=== PATIENT | female | born 1985 | race Caucasian/White ===

== ENCOUNTER 2017-06-02 17:37 | Emergency (ER) | payer OTHER ==
[2017-06-02 18:48] VITALS: BP 154/98; PULSE 90; RESP 16; TEMP 98; O2SAT 98
--- NOTE | 2017-06-02 19:16 | ED PDOC ---
HPI: General Adult Time Seen by Provider: 06/02/17 18:57 Chief Complaint (Nursing): Flu-like Symptoms Chief Complaint (Provider): Cough, sore throat History Per: Patient History/Exam Limitations: no limitations Onset/Duration Of Symptoms: Days Have you had recent travel within the past 21 days to any of the following countries: [place], [place], [place] or [place]?: No Current Symptoms Are (Timing): Still Present Additional Complaint(s): Pt reports cough, sore throat and hoarse voice x 5 days. PT was seen by PMD and prescribed z-pack and tamiflu 2 days ago. Pt states she still does not feel better. Pt reports fever yesterday 102.0 but did not take temperature today. PT took motrin for bodyaches 3 pm today. No phlegm. Past Medical History Reviewed: Historical Data, Nursing Documentation, Vital Signs Vital Signs: Last Vital Signs Temp 98.0 F 06/02/17 18:44 Pulse 90 06/02/17 18:44 Resp 16 06/02/17 18:44 BP 154/98 H 06/02/17 18:44 Pulse Ox 98 06/02/17 18:44 - Medical History PMH: Kidney Stones, Pneumonia, Chronic Kidney Disease - Surgical History Surgical History: Appendectomy, ( x 1) - Family History Family History: States: No Known Family Hx - Immunization History Hx Tetanus Toxoid Vaccination: No Hx Influenza Vaccination: No Hx Pneumococcal Vaccination: No - Home Medications Home Medications: Ambulatory Orders Medication Instructions Recorded Docusate Sodium [Colace] 100 mg PO DAILY PRN #5 sgl 02/27/14 Albuterol HFA [Ventolin HFA 90 1 puff IH Q4 PRN #1 unit 08/01/14 mcg/actuation (8 g)] Levofloxacin [Levaquin] 500 mg PO DAILY #10 tab 08/01/14 Prednisone 20 mg PO BID #10 tab 08/01/14 guaiFENesin/Codeine [Robitussin 5 ml PO Q4H PRN #240 ml 08/01/14 w/Codeine] traMADol [Ultram] 50 mg PO Q6H PRN #15 tab 09/03/14 predniSONE [predniSONE Tab] 20 mg PO DAILY #12 tab 06/02/17 - Allergies Allergies/Adverse Reactions: Allergies Allergy/AdvReac Type Severity Reaction Status Date / Time [place] Allergy RASH Verified 06/02/17 18:44 Review of Systems ROS Statement: Except As Marked, All Systems Reviewed And Found Negative Constitutional: Positive for: Fever, Chills, Malaise ENT: Positive for: Throat Pain Respiratory: Positive for: Cough. Negative for: Shortness of Breath Gastrointestinal: Negative for: Abdominal Pain Physical Exam - Reviewed Nursing Documentation Reviewed: Yes Vital Signs Reviewed: Yes - Physical Exam Appears: Positive for: Well, Non-toxic, No Acute Distress Head Exam: Positive for: ATRAUMATIC, NORMAL INSPECTION, NORMOCEPHALIC Skin: Positive for: Normal Color, Warm, DRY Eye Exam: Positive for: Normal appearance ENT: Positive for: Normal ENT Inspection, Pharynx Is (Mild erythema, equal bilateral, uvula midline) Neck: Positive for: Normal, Painless ROM Cardiovascular/Chest: Positive for: Regular Rate, Rhythm Respiratory: Positive for: Normal Breath Sounds. Negative for: Accessory Muscle Use Back: Positive for: Normal Inspection Extremity: Positive for: Normal ROM Neurologic/Psych: Positive for: Alert, Oriented - ECG O2 Sat by Pulse Oximetry: 98 Pulse Ox Interpretation: Normal Disposition - Clinical Impression Clinical Impression: Influenza-like symptoms - Patient ED Disposition Is Patient to be Admitted: No Counseled Patient/Family Regarding: Diagnosis, Need For Followup, Rx Given - Disposition Disposition: Routine/Home Disposition Time: 19:17 Condition: GOOD Prescriptions: predniSONE [predniSONE Tab] 20 mg PO DAILY #12 tab Instructions: Laryngitis (ED)
== END 2017-06-02 19:41 | disposition home or self-care (01) ==
LOC: H.ER 17:37
DX: J04.0 Acute laryngitis (principal); Z87.442 Personal history of urinary calculi
CPT/HCPCS: 81025; 96372; 99282; J1100

== ENCOUNTER 2018-03-29 13:22 | Emergency (ER) | payer OTHER ==
[2018-03-29] MEDS ORDERED: Sodium Chloride 0.9% 1,000 ML IV ONE (15:00)
[2018-03-29 15:27] LABS: BASO % 0.2 % (0.0-2.0); EOS # 0.1 K/uL (0.0-0.7); EOS % 1.6 % (0.0-4.0); HEMOGLOBIN 13.5 g/dL (12.0-16.0); LYMPH # 1.7 K/uL (1.0-4.3); LYMPH % 18.6 % (20.0-40.0); MEAN CELL VOLUME 79.9 fl (81.0-99.0); MEAN CORPUSCULAR HEMOGLOBIN 27.3 pg (27.0-31.0); MEAN CORPUSCULAR HGB CONC 34.1 g/dL (33.0-37.0); MEAN PLATELET VOLUME 8.4 fl (7.2-11.7); MONO # 0.8 K/uL (0.0-0.8); MONO % 8.2 % (0.0-10.0); NEUT # 6.5 K/uL (1.8-7.0); NEUT % 71.4 % (50.0-75.0); RBC 4.95 Mil/uL (3.80-5.20); WHITE BLOOD COUNT 9.2 K/uL (4.8-10.8)
[2018-03-29 15:42] LABS: ALBUMIN 4.4 g/dL (3.5-5.0); ALT/SGPT 26 U/L (9-52); AST/SGOT 44 U/L (14-36); BLOOD UREA NITROGEN 7 mg/dl (7-17); CALCIUM 9.3 mg/dL (8.4-10.2); GFR NON-AFRICAN AMERICAN > 60; LIPASE 74 U/L (23-300)
--- NOTE | 2018-03-29 16:32 | US ---
Date of service: 03/29/2018 HISTORY: RUQ pain COMPARISON: None. TECHNIQUE: Sonographic evaluation of the right upper quadrant of the abdomen. FINDINGS: LIVER: Measures 15.7 cm in length. Increased echogenicity of the liver parenchyma. No mass. No intrahepatic bile duct dilatation. GALLBLADDER: Unremarkable. No gallstones. COMMON BILE DUCT: Measures 3.4 mm. No stones. No dilatation. PANCREAS: The tail of the pancreas is obscured by overlying bowel gas with remainder unremarkable. RIGHT KIDNEY: Measures 11.2 cm in length. Normal echogenicity. No calculus, mass, or hydronephrosis. AORTA: No aneurysmal dilatation. IVC: Unremarkable. OTHER FINDINGS: None . IMPRESSION: Hepatic steatosis or other infiltrative process seen throughout the liver with remainder of the examination unremarkable.
[2018-03-29 17:54] VITALS: BP 137/93; PULSE 83; RESP 19; TEMP 97.7; O2SAT 100
--- NOTE | 2018-03-29 21:46 | ED PDOC ---
HPI: Abdomen Time Seen by Provider: 03/29/18 14:59 Chief Complaint (Nursing): Abdominal Pain Additional Complaint(s): 32 y/o female with no significant PMH presents to ED c/o nausea and vomiting x 2 days. Pt ate eth[place] food wednesday night and woke up nauseous the next morning. Admits to vomiting approx. 15 times Wednesday and 10 times today. Pt has associated diarrhea 3-5 times daily and generalized cramping belly pain. Denies sick contacts or recent antibiotic use. Denies alcohol use. History of appendectomy as a teenager. LMP 03/18/18. Denies fevers, chills, hematochezia, hematemesis, SOB, cough, chest pain, headache, vision changes, rash. Past Medical History Reviewed: Historical Data, Nursing Documentation, Vital Signs Vital Signs: Last Vital Signs Temp 97.7 F 03/29/18 17:47 Pulse 83 03/29/18 17:47 Resp 19 03/29/18 17:47 BP 137/93 H 03/29/18 17:47 Pulse Ox 100 03/29/18 17:47 - Medical History PMH: Fibromyalgia, Kidney Stones, Migraine, Pneumonia, Chronic Kidney Disease - Surgical History Surgical History: Appendectomy, ( x 1) - Family History Family History: States: No Known Family Hx - Immunization History Hx Tetanus Toxoid Vaccination: No Hx Influenza Vaccination: No Hx Pneumococcal Vaccination: No - Home Medications Home Medications: Ambulatory Orders Medication Instructions Recorded Docusate Sodium [Colace] 100 mg PO DAILY PRN #5 sgl 02/27/14 Albuterol HFA [Ventolin HFA 90 1 puff IH Q4 PRN #1 unit 08/01/14 mcg/actuation (8 g)] Levofloxacin [Levaquin] 500 mg PO DAILY #10 tab 08/01/14 Prednisone 20 mg PO BID #10 tab 08/01/14 guaiFENesin/Codeine [Robitussin 5 ml PO Q4H PRN #240 ml 08/01/14 w/Codeine] traMADol [Ultram] 50 mg PO Q6H PRN #15 tab 09/03/14 predniSONE [predniSONE Tab] 20 mg PO DAILY #12 tab 06/02/17 Ondansetron [Zofran] 8 mg PO Q8H PRN #6 tab 03/29/18 - Allergies Allergies/Adverse Reactions: Allergies Allergy/AdvReac Type Severity Reaction Status Date / Time [place] Allergy RASH Verified 03/29/18 13:50 Review of Systems Constitutional: Negative for: Fever, Chills, Sweats Eyes: Negative for: Pain, Vision Change ENT: Negative for: Ear Pain, Nose Pain, Mouth Pain, Throat Pain, Throat Swelling Cardiovascular: Negative for: Chest Pain, Palpitations Respiratory: Negative for: Cough, Shortness of Breath Gastrointestinal: Positive for: Nausea, Vomiting, Abdominal Pain, Diarrhea. Negative for: Melena, Hematochezia, Hematemesis, Rectal Pain Genitourinary Female: Negative for: Dysuria, Frequency, Incontinence Musculoskeletal: Negative for: Neck Pain, Shoulder Pain, Arm Pain, Back Pain, Hand Pain, Leg Pain, Foot Pain Skin: Negative for: Rash Neurological: Negative for: Weakness, Numbness, Confusion, Altered Mental Status, Dizziness Physical Exam - Reviewed Nursing Documentation Reviewed: Yes Vital Signs Reviewed: Yes - Physical Exam Appears: Positive for: Well, Non-toxic, No Acute Distress Head Exam: Positive for: ATRAUMATIC, NORMAL INSPECTION, NORMOCEPHALIC Skin: Positive for: Normal Color, Warm, DRY Eye Exam: Positive for: EOMI, Normal appearance, PERRL ENT: Positive for: Normal ENT Inspection Neck: Positive for: Normal, Painless ROM Cardiovascular/Chest: Positive for: Regular Rate, Rhythm Respiratory: Positive for: CNT, Normal Breath Sounds Pulses-Radial (L): 2+ Pulses-Radial (R): 2+ Gastrointestinal/Abdominal: Positive for: Bowel Sounds, Soft, Tenderness (RUQ). Negative for: Organomegaly, Mass, Distended, Guarding, Rebound, Hernia, Asicites Back: Positive for: Normal Inspection Extremity: Positive for: Normal ROM Lymphatic: Positive for: Normal Exam Neurologic/Psych: Positive for: Alert, Oriented - Laboratory Results Result Diagrams: 03/29/18 15:24 03/29/18 15:24 - ECG O2 Sat by Pulse Oximetry: 100 Medical Decision Making Medical Decision Makin32 y/o female with no significant PMH presents to ED c/o nausea and vomiting x 2 days. Pt ate eth[place] food wednesday night and woke up nauseous the next morning. Admits to vomiting approx. 15 times Wednesday and 10 times today. Pt has associated diarrhea 3-5 times daily and generalized cramping belly pain. Denies sick contacts or recent antibiotic use. Denies alcohol use. History of appendectomy as a teenager. Denies fevers, chills, hematochezia, hematemesis, SOB, cough, chest pain, headache, vision changes, rash. Exam significant for RUQ tenderness; dry mouth. Otherwise normal cardiac, pulmonary, HEENT, and abdominal exams. Initial plan: --zofran 8mg ODT --IVF --CBC, CMP, lipase --dipstick -POC preg --gall bladder US CBC:wnl CMP: wnl Dipstick: unremarkable US: FINDINGS: LIVER: Measures 15.7 cm in length. Increased echogenicity of the liver parenchyma. No mass. No intrahepatic bile duct dilatation. GALLBLADDER: Unremarkable. No gallstones. COMMON BILE DUCT: Measures 3.4 mm. No stones. No dilatation. PANCREAS: The tail of the pancreas is obscured by overlying bowel gas with remainder unremarkable. RIGHT KIDNEY: Measures 11.2 cm in length. Normal echogenicity. No calculus, mass, or hydronephrosis. AORTA: No aneurysmal dilatation. IVC: Unremarkable. OTHER FINDINGS: None . IMPRESSION: Hepatic steatosis or other infiltrative process seen throughout the liver with remainder of the examination unremarkable. Pt reevaluated, feels much better. Asking for ibuprofen for mild frontal headache. Will give and act as PO challenge. Pt tolerated medication and water without vomiting, will discharge. Impression: Gastroenteritis Plan: Zofran 8mg PO q8h as needed Followup with primary within 2 days to discuss US results Return to ED if symptoms persist or worsen Plan discussed with pt who agrees and understands, pt comfortable with discharge home. Disposition - Clinical Impression Clinical Impression: Gastroenteritis - Patient ED Disposition Is Patient to be Admitted: No - Disposition Disposition: Routine/Home Disposition Time: 16:30 Condition: IMPROVED Additional Instructions: Take zofran every 8 hours as needed for nausea increase fluids Increase food intake as tolerated Followup with primary doctor with US results for hepatic steatosis Return to ED if pain persists or worsens Prescriptions: Ondansetron [Zofran] 8 mg PO Q8H PRN #6 tab PRN Reason: Nausea/Vomiting Forms: [employer] (Persian), [facility] ED School/Work Excuse
== END 2018-03-29 17:47 | disposition home or self-care (01) ==
LOC: H.ER 13:22
DX: K52.9 Noninfective gastroenteritis and colitis, unspecified (principal); N18.9 Chronic kidney disease, unspecified; Z87.442 Personal history of urinary calculi
CPT/HCPCS: 76705; 80053; 81025; 83690; 85025; 96360; 99284; J7030